=== PATIENT | female | born 1965 | race Caucasian/White ===

== ENCOUNTER 2016-05-29 08:08 | Day surgery (SDC) | payer BC ==
[2016-05-19 14:51] VITALS: BMI 23.0
[2016-05-29] MEDS ORDERED: PROPOFOL 20 ML ONE ×2 (08:20)
[2016-05-29 08:29] VITALS: PULSE 58
[2016-05-29 09:43] VITALS: TEMP 98.2
[2016-05-29 11:25] VITALS: BP 99/65
--- NOTE | 2016-06-01 15:19 | PATH ---
Surgical Pathology Report Patient Name: AISLINN RODAS [facility]. Rec. #: [id number] /Age/Gender: 1965 (Age: 51) / F Account: [id number] Location: [facility]-ENDOSCOPY Taken: 05/29/2016 Received: 05/29/2016 Reported: 06/01/2016 Physicians: Loren Hidalgo M.D. Specimen(s) Received BX CECUM Clinical History Constipation, family history of colon polyps Polyps Final Diagnosis CECUM, BIOPSY: TUBULAR ADENOMA. Electronically Signed Vicky Neves M.D. Gross Description Received in formalin, labeled "cecum" are 2 rodriguez, irregular portions of soft tissue averaging 0.3 cm. in greatest dimension. The specimens are submitted in toto in one cassette. 05/29/201605/29/2016
== END 2016-05-29 10:00 | disposition home or self-care (01) ==
LOC: FASU-ENDO 08:08
PROVIDERS: ATTEND Internal Medicine
PROC: 0DBH8ZX Excision of Cecum, Via Natural or Artificial Opening Endoscopic, Diagnostic (ICD-10-PCS; principal; 2016-05-29 08:47)
DX: Z83.71 Family history of colonic polyps (principal); D12.0 Benign neoplasm of cecum; K64.8 Other hemorrhoids
CPT/HCPCS: 84703; 88305-TC